=== PATIENT | male | born 2005 | race Caucasian/White ===

== ENCOUNTER 2024-02-26 15:09 | Emergency (ER) | payer OTHER ==
[~2024-02-26 15:09] MED LIST: Iopamidol 300 61% 100 ML VIAL FS ONE
[2024-02-26] MEDS ORDERED: Ondansetron PF 4 MG/2 ML Vial ONE ×2 (15:38→19:49)
[2024-02-26] MEDS ORDERED: Ketorolac Tromethamine 30 MG (1 mL) VIAL ONE (15:57)
[2024-02-26 15:58] LABS: #Basophils 0.06 10x3/uL (0.0-0.2); #Monocytes 0.58 10x3/uL (0.0-1.1); #Neutrophils 9.01 10x3/uL (1.5-8.4); %Basophils 0.5 % (0.0-2.0); %Lymphocytes 15.6 % (18.0-47.0); %Monocytes 5.1 % (0.0-10.0); %Neutrophils 78.5 % (40.0-75.0); Hemoglobin 18.3 g/dL (13.5-17.5); Mean Corpuscular HGB CONC 36.6 g/dL (32.0-36.0); Mean Corpuscular Hemoglobin 30.6 pg (27.0-33.0); Mean Corpuscular Volume 83.6 fL (81.2-95.1); Mean Platelet Volume 9.6 fL (7.4-10.4); Platelet Count 242 10x3/uL (150-450); RBC Distribution Width 11.9 % (11.5-14.5); Red Blood Cell (RBC) Count 5.98 10x6/uL (4.32-5.72); White Blood Cell (WBC) Count 11.5 10x3/uL (3.5-10.5)
[2024-02-26 16:09] LABS: ALT (SGPT) 18 U/L (8-55); AST (SGOT) 26 U/L (5-34); Albumin 5.2 g/dL (3.5-5.0); Alkaline Phosphatase 72 U/L (50-130); Anion Gap 24 mmol/L (10-20); BUN (Urea Nitrogen) 13 mg/dL (8.9-20.6); Bilirubin, Total 2.1 mg/dL (0.2-1.2); Calc. Creatinine Clearance 0 mL/min (70-130); Calcium 10.9 mg/dL (7.8-10.44); Carbon Dioxide 19 mmol/L (22-29); Chloride 102 mmol/L (98-107); Estimated GFR 85; Globulin 3.2 g/dL (2.4-3.5); Glucose 147 mg/dL (70-105); Potassium 3.5 mmol/L (3.5-5.1); Protein, Total 8.4 g/dL (6.0-8.3); Sodium 141 mmol/L (136-145)
[2024-02-26 16:23] LABS: Lipase 43 U/L (8-78); Magnesium 1.9 mg/dL (1.7-2.2)
[2024-02-26 16:29] LABS: Troponin I Less than 0.010 ng/mL (< 0.028)
[2024-02-26] MEDS ORDERED: Cefepime 2 GM VIAL ONE (16:31)
[2024-02-26] MEDS ORDERED: Morphine 4 MG/ML VIAL ONE (16:38)
[2024-02-26] MEDS ORDERED: metroNIDAZOLE 500 MG (100 mL) BAG ONE (16:39)
[2024-02-26] MEDS ORDERED: VANCOMYCIN 2 GRAM/400 ML BAG 2 GM in Premix 1 BAG IVPB SCH (16:45)
[2024-02-26 19:52] LABS: Bilirubin Neg (Negative); Blood, Urine Negative (Negative); Clarity Clear (Clear); Glucose, Urine (Dipstick) 100 mg/dL (Negative); Ketone, Urine 150 mg/dL (Negative); Leukocyte Negative (Negative); Nitrite Negative (Negative); Protein, Urine (Dipstick) Negative (Neg-Trace); Urobilinogen Normal mg/dL (Less than 2)
[2024-02-26 20:02] LABS: Bacteria/HPF Rare-Few HPF (None Seen); CAUTI Indications for Culture Pelvic or flank pain; RBC/HPF 0-3 HPF (0-3); Squamous Epithelial 0-3 HPF (0-3); WBC/HPF 0-3 HPF (0-3)
[2024-02-26 20:04] LABS: Urine Culture Reflex No No
== END 2024-02-26 20:00 | disposition short-term general hospital (02) ==
LOC: CSHERS 15:09
DX: J98.2 Interstitial emphysema (principal); I31.9 Disease of pericardium, unspecified
CPT/HCPCS: 36415; 71045; 71260; 74177; 80053; 81001; 83605; 83690; 83735; 84484; 85025; 87040; 93005; J0692; J1885; J2272; J2405; J3370